=== PATIENT | male | born 1990 | race Caucasian/White ===

== ENCOUNTER 2023-02-13 13:34 | Emergency (ER) | payer OTHER ==
[2023-02-13 13:45] VITALS: BP 154/89; PULSE 78; RESP 18; TEMP 99.2; BMI 27.8
== END 2023-02-13 14:03 | disposition home or self-care (01) ==
LOC: FER 13:34
DX: S61.211A Laceration without foreign body of left index finger without damage to nail, initial encounter (principal); W26.8XXA Contact with other sharp object(s), not elsewhere classified, initial encounter
CPT/HCPCS: 99282-25

== ENCOUNTER 2023-08-13 02:28 | Emergency (ER) | payer OTHER ==
[2023-08-13 02:34] VITALS: BP 146/85; PULSE 97; RESP 17; TEMP 97.9; BMI 28.5
[2023-08-13] MEDS ORDERED: IBUPROFEN 400 MG TABLET (FP) PO ONE (02:56)
[2023-08-13] MEDS: IBUPROFEN 400 MG TABLET (FP) PO ONE (02:59)
== END 2023-08-13 03:26 | disposition home or self-care (01) ==
LOC: FER 02:28
DX: S81.012A Laceration without foreign body, left knee, initial encounter (principal); S60.221A Contusion of right hand, initial encounter; Y35.811A Legal intervention involving manhandling, law enforcement official injured, initial encounter
CPT/HCPCS: 99283-25

== ENCOUNTER 2023-10-26 04:10 | Emergency (ER) | payer OTHER ==
[2023-10-26 04:18] VITALS: BP 143/86; PULSE 71; RESP 16; TEMP 97.5; BMI 28.5
== END 2023-10-26 04:38 | disposition home or self-care (01) ==
LOC: FER 04:10
DX: S00.81XA Abrasion of other part of head, initial encounter (principal); Y35.811A Legal intervention involving manhandling, law enforcement official injured, initial encounter
CPT/HCPCS: 99282-25

== ENCOUNTER 2023-12-10 01:04 | Emergency (ER) | payer OTHER ==
[2023-12-10 01:08] VITALS: BP 149/98; PULSE 103; RESP 18; TEMP 98.2; BMI 29.1
[2023-12-10] MEDS ORDERED: CEPHALEXIN 250 MG/5 ML ORAL SUSPENSION PO ONE (01:22)
[2023-12-10] MEDS ORDERED: CEPHALEXIN MONOHYDRATE 500 MG CAPSULE (UD) ONE (01:33)
[2023-12-10] MEDS: BACITRACIN ZINC 15 GM TUBE TOPICAL OINTMENT TP ONE (01:37)
[2023-12-10] MEDS: CEPHALEXIN MONOHYDRATE 500 MG CAPSULE (UD) PO ONE (01:37)
== END 2023-12-10 02:32 | disposition home or self-care (01) ==
LOC: FER 01:04
DX: S51.831A Puncture wound without foreign body of right forearm, initial encounter (principal); S10.91XA Abrasion of unspecified part of neck, initial encounter; Y04.0XXA Assault by unarmed brawl or fight, initial encounter; Y35.811A Legal intervention involving manhandling, law enforcement official injured, initial encounter
CPT/HCPCS: 99283-25